=== PATIENT | female | born 1975 | race Caucasian/White ===

== ENCOUNTER 2018-09-28 14:43 | Emergency (ER) | payer SELFPAY ==
[~2018-09-28] VITALS: Ht 167.6 cm; Wt 58.5 kg
[~2018-09-28 14:43] MED LIST: Naprosyn500 MG PO; Percocet 5-3251 EACH PO
[2018-09-28] MEDS ORDERED: Norco 5-325 Ta1 EACH PO (17:20)
== END 2018-09-28 17:26 | disposition home or self-care (01) ==
LOC: ER 14:43
DX: M25.511 Pain in right shoulder (principal); Z88.5 Allergy status to narcotic agent; Z79.899 Other long term (current) drug therapy; Z87.891 Personal history of nicotine dependence
CPT/HCPCS: 73030; 73200; 99284-25

== ENCOUNTER 2023-01-09 20:21 | Emergency (ER) | payer OTHER ==
[~2023-01-09] VITALS: Ht 167.6 cm; Wt 59.0 kg
[~2023-01-09 20:21] MED LIST changes: +Norco 5-325 Ta1 EACH PO
[2023-01-09 20:38] VITALS: BP 149/78
[2023-01-09] MEDS ORDERED: CRUTCH2 XX (22:13)
== END 2023-01-09 22:10 | disposition home or self-care (01) ==
LOC: ER 20:21
DX: S82.64XA Nondisplaced fracture of lateral malleolus of right fibula, initial encounter for closed fracture (principal); W22.8XXA Striking against or struck by other objects, initial encounter; Z88.5 Allergy status to narcotic agent; Z87.891 Personal history of nicotine dependence
CPT/HCPCS: 73610

== ENCOUNTER → 2023-01-30 | Outpatient (CLI) | payer OTHER ==
[~2023-01-30] MED LIST changes: +CRUTCH2 XX
[2023-02-01 14:09] LABS: HPV 16 Negative (Negative); HPV 18 Negative (Negative); HPV OTHER HR TYPES Negative (Negative)
== END | disposition home or self-care (01) ==
LOC: LAB SHORT 15:43 → LAB 15:43
PROVIDERS: Advanced Practice Midwife
DX: Z01.419 Encounter for gynecological examination (general) (routine) without abnormal findings (principal)
CPT/HCPCS: 87624; G0145

== ENCOUNTER 2023-05-01 15:51 | Emergency (ER) | payer OTHER ==
[~2023-05-01] VITALS: Ht 167.6 cm; Wt 61.2 kg
[2023-05-01 20:15] VITALS: BP 151/89
== END 2023-05-01 20:20 | disposition home or self-care (01) ==
LOC: ER 15:51
DX: S61.412A Laceration without foreign body of left hand, initial encounter (principal); W26.8XXA Contact with other sharp object(s), not elsewhere classified, initial encounter; Z87.891 Personal history of nicotine dependence; Z88.5 Allergy status to narcotic agent
CPT/HCPCS: 12001; 12002; 73130; 90471; 90715; 96361-59; 96365-59; 96375-59; 99283-25; A9270; J0690; J1885; J7030